=== PATIENT | male | born 1995 | race Caucasian/White ===

== ENCOUNTER 2018-12-12 04:14 | Emergency (ER) | payer MEDICAID ==
[~2018-12-12] VITALS: Ht 172.7 cm; Wt 68.2 kg
[~2018-12-12 04:14] MED LIST: CEPH500C5 PO; CLIN-96 PO; IBUP-1985 PO
[2018-12-12 04:24] VITALS: BP 118/87
--- NOTE | 2018-12-12 04:26 | NUR ---
he claims that he 'have had amoxicillin and I am not allergic to it." when asked if he wanted me to strike it from his chart he stated "yeah, may as well."
[2018-12-12] MEDS ORDERED: NAPR-56 PO (05:45)
[2018-12-12] MEDS ORDERED: AMOX-580 PO (05:45)
[2018-12-12] MEDS ORDERED: naproxen 500mg tablet PO ONE (05:45)
[2018-12-12] MEDS ORDERED: HYDROcodone/acetaminophen 5mg/325mg tablet PO ONE (05:45)
[2018-12-12] MEDS ORDERED: amox tr/potassium clavulanate 875/125mg TAB PO ONE (05:45)
== END 2018-12-12 06:00 | disposition home or self-care (01) ==
LOC: ER 04:14
DX: K04.7 Periapical abscess without sinus (principal); F17.200 Nicotine dependence, unspecified, uncomplicated; F12.90 Cannabis use, unspecified, uncomplicated; Z86.14 Personal history of Methicillin resistant Staphylococcus aureus infection; Z79.899 Other long term (current) drug therapy
CPT/HCPCS: 99284

== ENCOUNTER 2019-02-19 13:11 | Emergency (ER) | payer MEDICAID ==
[~2019-02-19] VITALS: Ht 172.7 cm; Wt 68.6 kg
[~2019-02-19 13:11] MED LIST changes: +CLIN-90 PO; -CLIN-96 PO
[2019-02-19 13:33] VITALS: BP 124/79
[2019-02-19] MEDS ORDERED: PENI500T2 PO (14:02)
== END 2019-02-19 14:18 | disposition home or self-care (01) ==
LOC: ER 13:11
DX: K08.89 Other specified disorders of teeth and supporting structures (principal); F12.90 Cannabis use, unspecified, uncomplicated
CPT/HCPCS: 99283

== ENCOUNTER 2022-07-19 00:49 | Emergency (ER) | payer MEDICAID ==
[~2022-07-19] VITALS: Ht 172.7 cm; Wt 81.8 kg
[~2022-07-19 00:49] MED LIST changes: -CEPH500C5 PO; -CLIN-90 PO; +CLIN-97 PO
[2022-07-19 00:58] VITALS: BP 127/93
[2022-07-19] MEDS ORDERED: acetaminophen 325mg tablet PO STA (01:59)
[2022-07-19] MEDS ORDERED: normal saline 1000ML IV soln IV ONE (02:00)
[2022-07-19] MEDS ORDERED: piperacillin/tazo 3.375gm/50ml 50 ML IV ONE (02:00)
[2022-07-19] MEDS ORDERED: vancomycin/NS 1 GM ADD-VANTAGE 250 ML IV ONE (02:00)
[2022-07-19 02:52] LABS: URINE AMPHETAMINE SCREEN POSITIVE (Neg); URINE BARBITUATE SCREEN NEGATIVE (Neg); URINE BENZODIAZEPINES SCREEN NEGATIVE (Neg); URINE CANNABINOID SCREEN POSITIVE (Neg); URINE COCAINE SCREEN NEGATIVE (Neg); URINE METHADONE SCREEN NEGATIVE (Neg); URINE OPIATE SCREEN POSITIVE (Neg); URINE PHENCYCLIDINE SCREEN NEGATIVE (Neg)
== END 2022-07-19 02:44 | disposition left against medical advice (07) ==
LOC: ER 00:53
DX: L03.115 Cellulitis of right lower limb (principal); F12.90 Cannabis use, unspecified, uncomplicated; Z86.14 Personal history of Methicillin resistant Staphylococcus aureus infection; Z79.899 Other long term (current) drug therapy
CPT/HCPCS: 80305; 99283; J7030